=== PATIENT | female | born 1965 | race Caucasian/White ===

== ENCOUNTER 2016-11-08 09:53 | Inpatient (IN) | payer BC ==
[2016-11-04 21:11] LABS: BASOPHILS 0.2 %; BASOPHILS ABSOLUTE 0.01 10/3/uL (0.0-0.16); EOSINOPHILS 2.2 %; EOSINOPHILS ABSOLUTE 0.14 10/3/uL (0.0-0.53); HEMOGLOBIN 10.3 g/dL (12.0-16.0); IMMATURE GRANULOCYTES 0.3 %; IMMATURE GRANULOCYTES ABSOLUTE 0.02 10/3/uL (0.0-0.11); LYMPHOCYTES 23.9 %; LYMPHOCYTES ABSOLUTE 1.54 10/3/uL (0.67-4.30); MANUAL DIFF NO %; MEAN CORPUS HGB CONC 31.2 g/dL (32.0-36.0); MEAN CORPUSCULAR HEMOGLOB 26.9 pg (26.0-34.0); MEAN CORPUSCULAR VOLUME 86.2 fL (80-100); MEAN PLATELET VOLUME 8.9 fL (9.2-13.0); MONOCYTES 13.5 %; MONOCYTES ABSOLUTE 0.87 10/3/uL (0.21-1.20); NEUTROPHILS 59.9 %; NEUTROPHILS ABSOLUTE 3.87 10/3/uL (2.02-8.40); PLATELET COUNT 331 10/3/uL (150-400); RBC DISTRIBUTION WIDTH 18.7 % (12.0-16.0); RED CELL COUNT 3.83 10/6/uL (4.0-5.6); WHITE BLOOD CELLS 6.5 10/3/uL (4.5-10.5)
--- NOTE | ~2016-11-08 | OP ---
Record Of Operation [facility] [address] [place]. [address] NAME: DEBORAH CAMPOVERDE : 65 STATUS : ADM IN [facility]#: [id number] AGE: 50 ADM/REG DATE : 11/08/16 MR#: [id number] REPORT SERV DATE: 11/08/16 DICTATED BY: JARED SCHWARTZ DATE: 11/08/16 REPORT STATUS : Draft TRANSCRIBED BY: MODL DATE: 11/08/16 DATE OF PROCEDURE: 11/08/2016 OPERATIVE PROCEDURE: Robotic total laparoscopic hysterectomy and bilateral salpingectomy. PREOPERATIVE DIAGNOSES: 1. Uterine fibroid. 2. Menorrhagia. 3. Dysmenorrhea. 4. Anemia secondary to menorrhagia. POSTOPERATIVE DIAGNOSES: 1. Uterine fibroid. 2. Menorrhagia. 3. Dysmenorrhea. 4. Anemia secondary to menorrhagia. SURGEON: Jared Schwartz MD. ANESTHESIA: General anesthetic. FINDINGS: The uterus was enlarged or hypertrophic. The uterus sounded to 10 cm. A prominent fibroid was noted at the junction of the uterine body with the cervix on the right side. The presence of the fibroid made dissection on that side somewhat complicated. The ovaries appeared normal bilaterally. PROCEDURE: The patient was placed on the operating table in the supine position. After satisfactory general anesthesia, the patient was placed in lithotomy in the Frank[employer] Stirrups. The abdomen was prepped after which the vagina was prepped. The patient was draped. After gowning and gloving, I performed a vaginal exam and then placed a speculum in the vagina to expose the cervix. The anterior lip of the cervix was grasped with a single- tooth tenaculum. The uterus sounded to 10 cm. The cervix was dilated with Hegar dilators up to 8 mm. An 8 cm long balloon catheter was chosen for this procedure and the medium- sized MARIAN ring was used. The MARIAN device was secured to the cervix with two sutures of 0 Vicryl placed at the 10'o clock and 2'o clock position on the cervix. Once the MARIAN device was secured with the balloon catheter inside the uterus, the balloon was inflated. I Damon catheter was then placed in the bladder. I then took off the gloves we had used vaginally and put on new sterile gloves. I went to the bedside and began the laparoscopic procedure. A very small pin-point hole was made in the inferior border of the umbilicus. Through this tiny incision was Veress needle was placed inside the abdominal cavity and after checking for appropriate positioning, 2.5 L of carbon dioxide gas was insufflated. The Veress was then withdrawn. A transverse incision was made in the skin about 8 cm above the umbilicus in the midline. Through this incision a 12 mm trocar was inserted into the abdominal cavity. Through the trocar sleeve the robotic laparoscope was inserted. The robotic trocars were now inserted. These were placed just above the level of the umbilicus about 10 cm to right and left of midline respectively. After placing transverse incisions with a #15 Record Of Operation [address] [place]. [address] NAME: DEBORAH CAMPOVERDE : 65 STATUS : ADM IN [facility]#: [id number] AGE: 50 ADM/REG DATE : 11/08/16 MR#: [id number] REPORT SERV DATE: 11/08/16 DICTATED BY: JARED SCHWARTZ DATE: 11/08/16 REPORT STATUS : Draft TRANSCRIBED BY: DOUGLAS DATE: 11/08/16 blade scalpel, the robotic trocars were inserted under direct visualization. After placement of the robotic trocars, an 8 mm psych assistant port trocar was placed in the left upper quadrant under direct visualization. The robotic laparoscope was removed. At this time, the patient was placed in steep Trendelenburg and the bed lowered to its lowest position. The robot was then docked successfully. At this point, I went to the console after removing gown and gloves. I put a Gyrus PK forceps in robot arm number two and unipolar shear in robot arm number one. Pelvis was thoroughly inspected. The fibroid near the cervix was noted on the right side and the course of the ureters were visualized. At this time, I opened the peritoneum between the round ligament and the infundibulopelvic ligament pedicle and dissected in its plane to expose the ureter on the right. I then divided the round ligament with unipolar niesha on the right and incised the vesicouterine peritoneum to the midline. A defect was then made in the posterior leaf of the round ligament on the right. The Gyrus device was used to desiccate the mesosalpinx on the right side and then cut it with unipolar niesha in progressive fashion until we had divided the entire mesosalpinx on the right leaving the fallopian tube attached to the uterus. The left utero ovarian pedicle was triply desiccated withe Gyrus instrument and divided with the unipolar niesha. Attention was turned to the opposite side where the exact same maneuvers were performed in sequential fashion. Following this, the bladder was advanced off the cervix down to the level of the upper vagina using sharp dissection. On the left side, the uterine artery pedicles were skeletonized carefully. After visualizing the position of the ureter, the uterine artery pedicle on the left side was triply desiccated. Turning to the right side, the avascular portion of the round ligament was opened and divided down to the level of the fibroid. The fibroid was distorting the uterine artery on this side. The peritoneum over the fibroid was then incised and pushed off the posterior side of the fibroid. Small draining vessels were desiccated and divided in the position of the ureter identified by the opening the pelvic side wall on the right side further and tracing the ureter. Once we traced the ureter down to where it disappeared into the tunnel, I then desiccated the blood vessels around the fibroid including the uterine artery which was dissected out. These vessels were dissected and then desiccated with the Gyrus instrument and divided with unipolar niesha. Turning back to the left side, further desiccating the uterine artery on the left and divided it with unipolar niesha. Turning the Gyrus instrument in a more vertical direction, we then desiccated the cardinal ligament complex and divided it with unipolar niesha and continued to desiccate and divide down to the level of the MARIAN ring laterally. Turning back to the right side where the fibroid was, I was able to desiccate vessels all the around the fibroid and then just below the fibroid to the level of the MARIAN ring, the ring was now palpable all the way around the cervix. Using the unipolar niesha, I cut down the MARIAN ring laterally underneath the fibroid on the right side and entered the vagina without difficulty. I then used the unipolar niesha to cut around the entire cervix on the MARIAN ring and in doing so the uterus and cervix were completely freed of all their attachments. The uterus was then removed through the vagina with some difficulty due to the lateral position of the fibroids and relatively small vaginal opening. Once the uterus was removed, mono desiccation was performed with Gyrus instrument and the pelvis was irrigated. A Flaco Needle Electron Gun Assembler was inserted in robot arm number one and using additional needle charter bus driver in robot arm two as pickups, I then sutured the vaginal cuff from left to right using 2-0 PDS V-Loc suture. Once the entire vaginal cuff had been sutured [id number], then I went back for three more passes [id number] and then cut the suture, removed the needle from the abdomen. Additional irrigation was performed to clear. Pedicles around was inspected Record Of Operation [address] [address] NAME: DEBORAH CAMPOVERDE : 65 STATUS : ADM IN [facility]#: [id number] AGE: 50 ADM/REG DATE : 11/08/16 MR#: [id number] REPORT SERV DATE: 11/08/16 DICTATED BY: JARED SCHWARTZ DATE: 11/08/16 REPORT STATUS : Draft TRANSCRIBED BY: MODL DATE: 11/08/16 and found to be hemostatic. Procedure was now complete robotic portion. At this point, I scrub, gown and glove. The robot was undocked, gas was allowed to escape, and all trocar sleeves were removed. The fascia at the 12 mm port was closed with interrupted 2-0 Vicryl. The remainder of the incision were all closed with interrupted subcuticular 4-0 Monocryl and dressings were applied. The patient was now returned to the supine position. Estimated blood loss from the surgery was 150 mL. Sponge and needle counts were correct. There was approximately 600 mL of urine in the Damon catheter and the Damon was draining clear urine at the end of the procedure. The patient was awakened from general anesthesia and transferred to the recovery room in stable condition. RUSS/DOUGLAS Jared Schwartz MD / [id number] CC: Jared Schwartz MD
[~2016-11-08 09:53] MED LIST: ARMOUR THYRO90 MG PO; FERROUS SULF325 M1 PO; ZYRTEC ALLGY10 MG PO
[2016-11-09 07:19] LABS: HEMATOCRIT 30.4 % (36.0-48.0); HEMOGLOBIN 9.4 g/dL (12.0-16.0)
[2016-11-09] MEDS ORDERED: ANADS (10:58)
[2016-11-09] MEDS ORDERED: NORCO1 TA1 PO (10:59)
== END 2016-11-09 15:15 | disposition home or self-care (01) | DRG 743 ==
LOC: SDC/OF 09:53 → PACU 14:43 → 4EA 15:49
PROVIDERS: Obstetrics & Gynecology
PROC: 0UTC4ZZ Resection of Cervix, Percutaneous Endoscopic Approach (ICD-10-PCS; 2016-11-08)
PROC: 0UT74ZZ Resection of Bilateral Fallopian Tubes, Percutaneous Endoscopic Approach (ICD-10-PCS; 2016-11-08)
PROC: 8E0W4CZ Robotic Assisted Procedure of Trunk Region, Percutaneous Endoscopic Approach (ICD-10-PCS; 2016-11-08)
PROC: 0UT94ZZ Resection of Uterus, Percutaneous Endoscopic Approach (ICD-10-PCS; principal; 2016-11-08 11:00)
DX: D25.9 Leiomyoma of uterus, unspecified (principal)
CPT/HCPCS: 36415; 85014; 85018; 85025; 86850; 86900; 86901; 88307; 93005; A9270-GY; G0378; J0694; J1885; J2250; J2270; J2405; J2710; J3010